=== PATIENT | female | born 1985 | race Caucasian/White ===

== ENCOUNTER 2024-04-27 20:22 | Emergency (ER) | payer OTHER ==
[~2024-04-27] VITALS: Ht 160 cm; Wt 76.7 kg
[~2024-04-27 20:22] MED LIST: ALBUTEROL1.25 MG/3 INH; ALLEGRA ALLERGY60 MG PO; CALCIUM500 MG PO; CRYSELLE1 EACH PO; DAILY MULTIPLE1 EACH PO; FISH OIL500 M1 PO; IMODIUM MULTI-1 EACH PO; IRON325 M1 PO; OMEPRAZOLE20 MG PO; VITAMIN E400 UNI1 PO; ZOFRAN4 MG PO
[2024-04-27] MEDS ORDERED: MAXITROL EYE DRO5 ML OPTH (20:42)
[2024-04-27] MEDS ORDERED: NEOMYCIN/POLYMYXIN/DEXAMETH OPTH SUSPENSION BOTTLE OD ONE (20:45)
[2024-04-27 21:11] VITALS: BP 124/90
== END 2024-04-27 21:14 | disposition home or self-care (01) ==
LOC: ED 20:22
DX: H10.9 Unspecified conjunctivitis (principal); Z88.5 Allergy status to narcotic agent; Z79.899 Other long term (current) drug therapy